=== PATIENT | male | born 1980 | race Caucasian/White ===

== ENCOUNTER 2016-10-24 11:06 | Emergency (ER) | payer SELFPAY ==
[2016-10-24 11:31] VITALS: BP 149/95; TEMP 98.7; O2SAT 99
[2016-10-24] MEDS ORDERED: KETOROLAC TROMETHAMINE INJ 30 MG/ML VIAL IM ONE (12:31)
[2016-10-24] MEDS ORDERED: HYDROcodone 5MG/APAP 325MG 1 EA TAB PO ONE ×3 (12:31→13:17)
--- NOTE | 2016-10-24 14:21 | RAD ---
EXAM DESCRIPTION: XR CHEST 2 VIEWS CLINICAL HISTORY: testicular mass COMPARISON: None FINDINGS: Two-view chest x-ray shows cardiomediastinal silhouette and pulmonary vasculature to be within normal limits. The lungs are normally aerated and clear. Costophrenic angles are sharp. Osseous structures are unremarkable. IMPRESSION: No radiographic evidence of acute cardiopulmonary disease. Electronically signed by: Jeff De La Fuente MD 10/24/2016 14:19
--- NOTE | 2016-10-24 14:45 | US ---
EXAM DESCRIPTION: US SCROTUM CLINICAL HISTORY: rigth scrotal swelling 3 months COMPARISON: None. TECHNIQUE: Sonographic images of the scrotum are obtained. FINDINGS: There is a large complex appearing mass in the right testicle showing heterogeneous echogenicity with multiple small cyst. This mass measures at least 10.2 x 8.4 x 12.9 cm. No obvious abnormal calcifications are identified. The epididymis is not identified. No significant hydrocele on the right. The left testicle measures 5.1 x 2.7 x 2.7 cm. There is normal diffuse echogenicity of the left testicle with normal vascular flow. The left epididymal head measures 8 x 20 x 8 mm and is unremarkable. No hydrocele or obvious varicocele is seen. IMPRESSION: Large mass of the right testicle measuring 10.2 x 12.9 cm most consistent with testicular carcinoma. The right epididymis is not identified. Findings on this exam were called to Dr. Dorado At 1440 hr on October 24, 2016. Electronically signed by: Jeff De La Fuente MD 10/24/2016 14:43
--- NOTE | 2016-10-24 15:44 | ED.PDOC ---
History of Present Illness - General Chief Complaint: Problem Stated Complaint: RIGHT TESTICULAR PAIN Time Seen by Provider: 10/24/16 11:33 Source: patient Exam Limitations: no limitations - History of Present Illness Initial Comments: the patient is a 36-year-old male presenting to the emergency room secondary to swelling in his right testicle and pain with the right testicle and spermatic cord on that side. He reports that about 8 months ago he had some swelling and had an ultrasound that is not know the result of that ultrasound. He was apparently given some antibiotics that he thought might have made the swelling reduce some but did not go away. Several months ago the swelling started to become more and more and more. The pain has become unbearable so he presented to the emergency room today. He is from [place] and his previous physicians are there. he denies fevers or weight loss. No dysuria. No blood in the urine. No blood in the abdomen. No back pain. No shortness of breath. [place] is out of [place] on work. Timing/Duration: constant Severity: moderate Improving Factors: nothing Worsening Factors: nothing Associated Symptoms: denies symptoms Allergies/Adverse Reactions: Allergies NO KNOWN ALLERGY Allergy (Verified 10/24/16 11:26) Home Medications: Ambulatory Orders [id number]-[id number] [Fioricet] 1 ea PO Q8H PRN #21 tab 10/24/16 Review of Systems - Review of Systems Constitutional: States: no symptoms reported EENTM: States: no symptoms reported Respiratory: States: no symptoms reported Cardiology: States: no symptoms reported Gastrointestinal/Abdominal: States: no symptoms reported Genitourinary: States: see HPI Musculoskeletal: States: no symptoms reported Skin: States: no symptoms reported Neurological: States: no symptoms reported Endocrine: States: no symptoms reported All other Systems: No Change from Baseline Past Medical History (General) - Patient Medical History Hx Hypertension: No Hx Diabetes: No Hx Hepatitis C: No Surgical History: no surgical history - Vaccination History Hx Tetanus, Diphtheria Vaccination: No Hx Influenza Vaccination: No Hx Pneumococcal Vaccination: No - Social History Hx Alcohol Use: Yes Hx Substance Use: Yes Family Medical History - Family History Mother Family History: Unknown Living Status: Still Living Physical Exam - Physical Exam General Appearance: Alert, Comfortable, No apparent distress Eye Exam: bilateral normal Ears, Nose, Throat: hearing grossly normal, normal ENT inspection, normal pharynx Neck: full range of motion, supple, normal inspection Respiratory: chest non-tender, lungs clear, normal breath sounds, no respiratory distress, no accessory muscle use Cardiovascular/Chest: normal peripheral pulses, regular rate, rhythm, no edema, other - borderline sinus tachycardia once he relaxes Peripheral Pulses: radial,right: 2+, radial,left: 2+, dorsalis pedis,right: 2+, dorsalis pedis,left: 2+ Gastrointestinal/Abdominal: non tender, soft Rectal Exam: deferred, other - right testicle is significantly enlarged to approximately 12 cm. There is mild discomfort to palpation of the testicle but no skin changes. No erythema. He does have some discomfort palpation along the spermatic cord proximally. I do not feel any enlargement of the inguinal lymph nodes themselves. no discharge from the penis. Elevation of the testicle does seem to reduce the pain. Back Exam: normal inspection, no CVA tenderness, no vertebral tenderness Extremity: normal range of motion, non-tender, normal inspection, no pedal edema , normal capillary refill Neurologic: alert, normal mood/affect, oriented x 3 Skin Exam: normal color Comments: Vital Signs - 24 hr 10/24/16 11:27 Temperature 98.7 F Pulse Rate [ 121 H MONITOR] Respiratory 20 Rate Blood Pressure 149/95 [Right Arm] O2 Sat by Pulse 99 Oximetry repeat pulse checked by me shows a heart rate of 82 Progress - Progress Progress: 10/24/16 15:47 the patient is a 36-year-old male with a long-standing right testicular mass that is most consistent with a testicular cancer based on ultrasound. General laboratory work appears normal including a normal LDH. The patient needs to return home to get set up with oncology for further testing for tumor markers, biopsy and additional imaging as well as appropriate treatment based on the results. He needs to do this as soon as possible. He will be written for Fioricet for pain here. He needs to return to the emergency room for any acute worsening. - Results/Orders Results/Orders: chest x-ray appears grossly normal. Laboratory Results - last 24 hr 10/24/16 14:05 WBC 8.0 RBC 4.73 Hgb 13.5 L Hct 40.3 L MCV 85.2 MCH 28.5 MCHC 33.4 RDW 14.0 Plt Count 307 MPV 7.5 Absolute Neuts (auto) 5.60 Absolute Lymphs (auto) 1.60 Absolute Monos (auto) 0.50 Absolute Eos (auto) 0.20 Absolute Basos (auto) 0.10 Neutrophils % 70.5 Lymphocytes % 19.9 L Monocytes % 6.8 Eosinophils % 2.0 Basophils % 0.8 PT 12.2 INR 1.080 PTT (SP) 37.8 H Sodium 137 Potassium 3.5 L Chloride 104 Carbon Dioxide 25 Anion Gap 11.5 L BUN 13 Creatinine 0.91 BUN/Creatinine Ratio 14.3 Random Glucose 93 Serum Osmolality 273.6 L Calcium 9.1 Total Bilirubin 0.6 AST 18 ALT 14 Alkaline Phosphatase 75 LD Total 151 Serum Total Protein 7.6 Albumin 3.7 Globulin 3.9 H Albumin/Globulin Ratio 0.9 L Departure - Departure Clinical Impression: Testicular mass Disposition: Discharge to Home or Self Care Condition: Fair Departure Forms: ED Discharge - Pt. Copy, Patient Portal Self Enrollment Diet: regular diet Activity: increase activity as tolerated Prescriptions: [id number] [Fioricet] 1 ea PO Q8H PRN #21 tab PRN Reason: Pain Home Medications: Ambulatory Orders [id number]-[id number] [Fioricet] 1 ea PO Q8H PRN #21 tab 10/24/16 Additional Instructions: the patient is a 36-year-old male with a long-standing right testicular mass that is most consistent with a testicular cancer based on ultrasound. General laboratory work appears normal including a normal LDH. The patient needs to return home to get set up with oncology for further testing for tumor markers, biopsy and additional imaging as well as appropriate treatment based on the results. He needs to do this as soon as possible. He will be written for Fioricet for pain here. He needs to return to the emergency room for any acute worsening.
== END 2016-10-24 16:11 | disposition home or self-care (01) ==
LOC: ER 11:06
DX: N44.8 Other noninflammatory disorders of the testis (principal)
CPT/HCPCS: 36415; 71020; 76870; 80053; 83615; 84702; 85025; 85610; 85730; J1885